=== PATIENT | female | born 1990 | race Caucasian/White ===

== ENCOUNTER 2016-11-09 17:18 | Emergency (ER) | payer OTHER ==
[~2016-11-09] VITALS: Ht 175.3 cm; Wt 72.5 kg
[~2016-11-09 17:18] MED LIST: LORTA5 PO; Z.0.NO CURRENT MEDS
[2016-11-09 17:21] VITALS: BP 175/100; PULSE 67; RESP 20; TEMP 98.5; O2SAT 100
[2016-11-09] MEDS ORDERED: METR-1 PO (17:38)
[2016-11-09] MEDS ORDERED: TERC0.8C VAGINAL (17:38)
--- NOTE | 2016-11-09 17:51 | PD ---
HPI Chief Complaint: Ammunition And Explosives Handler Problem/Complaint Time Seen by Provider: 17:46 Travel History International Travel<30 days: No Contact w/Intl Traveler<30days: No Traveled to known affect area: No History of Present Illness HPI 26-year-old female with a past medical history PCOS presents to the emergency department for evaluation of pelvic pressure/pain, vaginal irritation she states that has been ongoing for 10 days. She states the last few days have been heavier. Patient denies . Patient spoke to her physician on Wednesday who she had vaginal candidiasis and gave her prescription for Diflucan. She states it is not proven she went to an urgent care on Wednesday who prescribed terconazole and. She states she has not had any improvement. She states that nobody has done a pelvic exam. Patient states that she has chronic vaginal discharge, not worse than normal. She is and is low risk for STDs. Patient is a G2, P2. PFSH Past Medical History Asthma: Yes Autoimmune Disease: No Blood Disorders: No Cardiovascular Problems: No Gastrointestinal Disorders: Yes (CELIAC DISEASE ) Headaches: Yes Musculoskeletal: No Neurologic: Yes Reproductive: Yes (PCOS ) Respiratory: Yes Tetanus Vaccination: Unknown Influenza Vaccination: No ?: Not LMP: 10/29/16 : 2 Para: 2 Ovarian Cysts: Yes Past Surgical History Abdominal Surgery: No Appendectomy: Yes Cardiac Surgery: No Endocrine Surgery: No Genitourinary Surgery: No Neurologic Surgery: No Other Surgery: Yes (MRSA REMOVAL SURGERY ) Social History Alcohol Use: No Tobacco Use: No Substance Use: No Allergies-Medications (Allergen,Severity, Reaction): Coded Allergies: No Known Allergies (Unverified , 09/30/12) Reported Meds & Prescriptions Reported Meds & Active Scripts Active Reported Terconazole Vaginal Cream 0.8 % Cream 1 Appl VAGINAL HS For 3 days. Flagyl (Metronidazole) 500 Mg Tab 500 Mg PO TID Review of Systems Except as stated in HPI: all other systems reviewed are Neg Physical Exam Narrative GENERAL: Well-nourished, well-developed female patient, ambulatory. Afebrile. SKIN: Focused skin assessment warm/dry. HEAD: Normocephalic. Atraumatic. EYES: No scleral icterus. No injection or drainage. NECK: Supple, trachea midline. No JVD or lymphadenopathy. CARDIOVASCULAR: Regular rate and rhythm without murmurs, gallops, or rubs. RESPIRATORY: Breath sounds equal bilaterally. No accessory muscle use. Lungs sounds clear to auscultation. GASTROINTESTINAL: Abdomen soft and nondistended. Pelvic tenderness to palpation. MUSCULOSKELETAL: No cyanosis, or edema. BACK: Nontender without obvious deformity. No CVA tenderness. GENITOURINARY: Normal external genitalia without lesions or erythema. Vaginal vault without blood or drainage. Cervical os was closed without drainage. No cervical motion tenderness. Uterus nontender and nonenlarged. Bilateral adnexa nontender without masses. Pelvic exam was done with RNDesire, at bedside. Data Data Last Documented VS Vital Signs Date Time Temp Pulse Resp B/P Pulse Ox O2 Delivery O2 Flow Rate FiO2 11/09/16 17:21 98.5 67 20 175/100 100 Room Air Orders Complete Blood Count With Diff (11/09/16 17:45) Basic Metabolic Panel (Bmp) (11/09/16 17:45) Gc And Chlamydia Pcr (11/09/16 17:45) Wet Prep Profile (11/09/16 17:45) Urinalysis - C+S If Indicated (11/09/16 17:45) Ed Urine Pregnancytest Poc (11/09/16 17:45) Us Pelvis Comp W Dop Transvag (11/09/16 ) Labs Laboratory Tests Test 11/09/16 18:00 White Blood Count 10.9 TH/MM3 Red Blood Count 4.34 MIL/MM3 Hemoglobin 12.0 GM/DL Hematocrit 35.4 % Mean Corpuscular Volume 81.5 FL Mean Corpuscular Hemoglobin 27.6 PG Mean Corpuscular Hemoglobin 33.8 % Concent Red Cell Distribution Width 14.6 % Platelet Count 328 TH/MM3 Mean Platelet Volume 8.1 FL Neutrophils (%) (Auto) 62.3 % Lymphocytes (%) (Auto) 24.5 % Monocytes (%) (Auto) 10.0 % Eosinophils (%) (Auto) 2.8 % Basophils (%) (Auto) 0.4 % Neutrophils # (Auto) 6.8 TH/MM3 Lymphocytes # (Auto) 2.7 TH/MM3 Monocytes # (Auto) 1.1 TH/MM3 Eosinophils # (Auto) 0.3 TH/MM3 Basophils # (Auto) 0.0 TH/MM3 CBC Comment DIFF FINAL Differential Comment Urine Color YELLOW Urine Turbidity CLEAR Urine pH 5.5 Urine Specific [place] 1.030 Urine Protein TRACE mg/dL Urine Glucose (UA) NEG mg/dL Urine Ketones 10 mg/dL Urine Occult Blood NEG Urine Nitrite NEG Urine Bilirubin NEG Urine Urobilinogen 2.0 MG/DL Urine Leukocyte Esterase SMALL Urine RBC 3 /hpf Urine WBC 2 /hpf Urine Squamous Epithelial <1 /hpf Cells Urine Mucus FEW /lpf Microscopic Urinalysis Comment CULT NOT INDICATED Clue Cells (Wet Prep) NONE SEEN Vaginal Trichomonas (Wet Prep) NONE SEEN Vaginal Yeast (Wet Prep) NONE SEEN Sodium Level 142 MEQ/L Potassium Level 3.8 MEQ/L Chloride Level 106 MEQ/L Carbon Dioxide Level 28.1 MEQ/L Anion Gap 8 MEQ/L Blood Urea Nitrogen 14 MG/DL Creatinine 0.96 MG/DL Estimat Glomerular Filtration 70 ML/MIN Rate Random Glucose 99 MG/DL Calcium Level 8.1 MG/DL [facility] Medical Decision Making Medical Screen Exam Complete: Yes Emergency Medical Condition: Yes Medical Record Reviewed: Yes Interpretation(s) US- CONCLUSION: Right ovarian cyst measuring 3.3 x 4.6 x 2.7 cm.. Nonvisualization of the left ovary. Unremarkable uterus. Differential Diagnosis Vaginitis versus torsion versus UTI Narrative Course 26-year-old female presents to the emergency department for evaluation of pelvic pain, vaginal irritation. CBC, BMP are ordered and pending. Patient verbalizes agreement to pelvic exam. UA, urine test, wet prep profile , swab for chlamydia and gonorrhea are ordered and pending. Ultrasound of the pelvis is ordered and pending. CBC shows no acute abnormality. BMP shows no acute abnormality. UA is negative for acute infection. UPT is negative. Wet prep is negative for clue cells, Trichomonas, yeast. US shows right ovarian cyst measuring 3.3 x 4.6 x 2.7 cm.. Nonvisualization of the left ovary. Unremarkable uterus. I discussed the case with the patient and relayed results to her. I instructed her on the need to follow up with a degreaser operator. She is to continue already prescribed medications. She verbalizes understanding and agreement. The patient was discharged in stable condition with instructions, including return instructions and follow up instructions. Diagnosis Primary Impression: Ovarian cyst Referrals: Community Arts Officer call for appointment Patient Instructions: General Instructions, Ovarian Cyst (ED) Additional Instructions: Continue are any prescribed medications. Follow-up with a degreaser operator. Return to the emergency department for any acute worsening of symptoms. Med/Other Pt SpecificInfo: No Change to Meds Disposition: 01 DISCHARGE HOME Condition: Stable Caitlin Flores November 09, 2016 17:51
[2016-11-09 18:23] LABS: AUTOMATED NEUTROPHIL # 6.8 TH/MM3 (1.8-7.7); BASOPHIL % 0.4 % (0.0-2.0); EOSINOPHIL # 0.3 TH/MM3 (0-0.4); EOSINOPHIL % 2.8 % (0.0-4.0); HEMATOCRIT 35.4 % (35.0-46.0); HEMO FLAGS DIFF FINAL; LYMPH % 24.5 % (9.0-44.0); LYMPHOCYTE # 2.7 TH/MM3 (1.0-4.8); MEAN CELL VOLUME 81.5 FL (80.0-100.0); MEAN CORPUSCULAR HEMOGLOBIN 27.6 PG (27.0-34.0); MEAN CORPUSCULAR HGB CONC 33.8 % (32.0-36.0); NEUT % 62.3 % (16.0-70.0); PLATELET COUNT 328 TH/MM3 (150-450); RED BLOOD COUNT 4.34 MIL/MM3 (4.00-5.30); RED CELL DISTRIBUTION WIDTH 14.6 % (11.6-17.2); WHITE BLOOD COUNT 10.9 TH/MM3 (4.0-11.0)
[2016-11-09 18:38] LABS: BICARBONATE 28.1 MEQ/L (21.0-32.0); POTASSIUM 3.8 MEQ/L (3.5-5.1)
[2016-11-09 18:39] LABS: BLOOD, URINE NEG (NEG); COMMENT (UR) CULT NOT INDICATED; CULTURE IF INDICATED CULT NOT INDICATED; GLUCOSE,URINE NEG (NEG); KETONE, URINE 10 mg/dL (NEG); MUCUS URINE FEW /lpf (OCC); NITRITE,URINE NEG (NEG); PH, URINE 5.5 (5.0-8.5); SQUAMOUS EPITHELIAL CELL URINE <1 /hpf (0-5); URINE COLOR YELLOW (YELLW/STRAW)
--- NOTE | 2016-11-09 20:49 | RADRPT ---
EXAM DATE/TIME: 11/09/2016 19:11 [place] COMPARISON: No previous studies available for comparison. INDICATIONS : Pelvic pain. MEDICAL HISTORY : MRSA. Celiac disease. Polycystic ovary disease. SURGICAL HISTORY : Appendectomy. ENCOUNTER: Initial ACUITY: 1 week PAIN SCORE: 5/10 LOCATION: Bilateral pelvis MEASUREMENTS: UTERUS: 9.2 x 5.9 x 4.4 cm ENDOMETRIAL STRIPE: 9 mm RIGHT OVARY: 4.9 x 3.0 x 3.8 cm LEFT OVARY: not visualized cm FINDINGS: UTERUS: The myometrium has homogeneous echotexture without mass.Nabothian cysts are noted within the cervix. RIGHT OVARY: There is a 3.3 x 4.6 x 2.7 cm right ovarian cyst. LEFT OVARY: The left ovary is not visualized. MISCELLANEOUS: No free fluid. CONCLUSION: Right ovarian cyst measuring 3.3 x 4.6 x 2.7 cm.. Nonvisualization of the left ovary. Unremarkable uterus. Robert Galo MD on November 09, 2016 at 20:44 Board Certified Radiologist. This report was verified electronically.
[2016-11-09 21:20] VITALS: BP 120/76
[2016-11-09 21:31] LABS: CHLAMYDIA PCR NOT DETECTED (NOT DETECT); NEISSERIA PCR NOT DETECTED (NOT DETECT)
== END 2016-11-09 21:15 | disposition home or self-care (01) ==
LOC: NEPD 17:18
DX: N83.201 Unspecified ovarian cyst, right side (principal); R10.2 Pelvic and perineal pain; B37.3 Candidiasis of vulva and vagina; J45.909 Unspecified asthma, uncomplicated
CPT/HCPCS: 76830; 76856; 80048; 81001; 84703; 85025; 87210; 87491; 87591; 93975; 99284